=== PATIENT | female | born 1955 | race Two or more races ===

== ENCOUNTER 2021-10-09 10:07 | Outpatient (CLI) | payer OTHER ==
[~2021-10-09] VITALS: Ht 152.4 cm; Wt 76.7 kg
[2021-10-10] MEDS ORDERED: LOSA-39 PO (08:24)
[2021-10-10] MEDS ORDERED: ATEN-60 PO (08:24)
== END 2021-10-09 11:42 | disposition home or self-care (01) ==
LOC: LAB 10:07 → EDSTATUS 10-11 10:15
PROVIDERS: ATTEND Obstetrics & Gynecology
DX: R93.89 Abnormal findings on diagnostic imaging of other specified body structures (principal); Z53.8 Procedure and treatment not carried out for other reasons; I10 Essential (primary) hypertension; Z98.51 Tubal ligation status; Z90.49 Acquired absence of other specified parts of digestive tract; Z98.891 History of uterine scar from previous surgery; Z20.822 Contact with and (suspected) exposure to COVID-19
CPT/HCPCS: 86850; 86900; 86901; U0003

== ENCOUNTER 2021-11-29 06:06 | Day surgery (SDC) | payer OTHER ==
[~2021-11-29] VITALS: Ht 152.4 cm; Wt 77.1 kg
[~2021-11-29 06:06] MED LIST: ATEN-60 PO; LOSA-39 PO
[2021-11-29] MEDS ORDERED: SUCCINYLCHOLINE CHLORIDE 20 MG/ML 10ML VIAL IV ONE (07:01)
[2021-11-29] MEDS ORDERED: ONDANSETRON HCL 4 MG/2 ML VIAL ONE ×2 (07:05→09:15)
[2021-11-29] MEDS ORDERED: fentaNYL CITRATE 100 MCG/2 ML VL ONE (07:05)
[2021-11-29] MEDS ORDERED: SODIUM CHLORIDE LOCK 10 ML ONE (07:05)
[2021-11-29] MEDS ORDERED: MIDAZOLAM HCL 2MG/2ML 2ml VIAL (1mg/ml) ONE (07:05)
[2021-11-29] MEDS ORDERED: PROPOFOL 10 MG/ML 20 ML IV ONE (07:05)
[2021-11-29] MEDS ORDERED: DexAMETHasone SOD PHOS 10MG/1ML VIAL INJ ONE (07:05)
[2021-11-29] MEDS ORDERED: ROCURONIUM 10MG/ML 10ML VIAL IV ONE (07:09)
[2021-11-29] MEDS ORDERED: ceFAZolin 1GM/50ML 100 ML IV ONE (07:12)
[2021-11-29] MEDS ORDERED: HYDROmorphone HCL 2 MG/ML VL/or syr IV PRN (07:30)
[2021-11-29] MEDS ORDERED: fentaNYL CITRATE 100 MCG/2 ML VL IV PRN (07:30)
[2021-11-29] MEDS ORDERED: MORPHINE SULFATE 4 MG/ML SYR/VIAL IV PRN (07:30)
[2021-11-29] MEDS ORDERED: METOCLOPRAMIDE HCL 5MG/ml INJ 2ml VIAL IV PRN (07:30)
[2021-11-29] MEDS ORDERED: ONDA-144 PO (08:25)
[2021-11-29] MEDS ORDERED: IBUP800T27 PO (08:25)
[2021-11-29] MEDS ORDERED: ONDANSETRON HCL 4 MG/2 ML VIAL IV PRN (08:30)
[2021-11-29] MEDS ORDERED: LACTATED RINGER'S 1,000 ML IV SCH (08:30)
[2021-11-29 09:20] VITALS: BP 144/70
== END 2021-11-29 09:37 | disposition home or self-care (01) ==
LOC: SUR 06:06
PROVIDERS: ATTEND Obstetrics & Gynecology
DX: N85.00 Endometrial hyperplasia, unspecified (principal); I10 Essential (primary) hypertension; E66.9 Obesity, unspecified; E78.5 Hyperlipidemia, unspecified; Z90.49 Acquired absence of other specified parts of digestive tract; Z88.6 Allergy status to analgesic agent; Z68.33 Body mass index [BMI] 33.0-33.9, adult; Z20.822 Contact with and (suspected) exposure to COVID-19
CPT/HCPCS: 58558; 86850; 86900; 86901; 88305; J0330; J0690; J1100; J2250; J2405; J2704; J3010; U0003